=== PATIENT | female | born 1955 | race Two or more races ===

== ENCOUNTER 2017-02-06 11:16 | Emergency (ER) | payer MEDICAID ==
[~2017-02-06] VITALS: Ht 160 cm; Wt 82.0 kg
[2017-02-06] MEDS ORDERED: SODIUM CHLORIDE 0.9% 1,000 ML IV ONE (11:44)
[2017-02-06 12:04] LABS: BASOPHILS % 0.4 % (0.0-2.0); HEMATOCRIT. 34.4 % (36.0-48.0); HEMOGLOBIN. 11.3 g/dL (12.0-16.0); LYMPHOCYTES % 15.4 % (20.0-50.0); MEAN CORPUSCULAR HEMOGLOBIN 26.9 pg (28.0-32.0); MEAN CORPUSCULAR VOLUME 81.6 fL (81.0-99.0); MEAN PLATELET VOLUME 9.5 fl (7.4-10.4); MONOCYTES % 6.2 % (2.0-8.0); PLATELET 129 x1000/uL (130-400); RED BLOOD CELL COUNT 4.21 mill/uL (4.2-5.4); RED CELL DISTRIBUTION WIDTH 12.9 % (11.6-14.6); WHITE BLOOD COUNT 6.7 x1000/uL (4.5-11.0)
[2017-02-06 12:12] LABS: INR 1.1; PARTIAL THROMBOPLASTIN TIME 32.6 sec (24.0-34.0); PROTHROMBIN TIME 11.3 sec
[2017-02-06 12:13] LABS: AMMONIA 17 uMol/L (<32)
[2017-02-06 12:21] LABS: ACETAMINOPHEN < 2 ug/mL (10-30); ALANINE AMINOTRANSFERASE 19 IU/L (13-61); ALBUMIN 3.5 g/dL (3.4-5.0); ANION GAP 16; CARBON DIOXIDE 22 mEq/L (21-32); CHLORIDE 109 mEq/L (98-107); CREATINE KINASE 311 IU/L (26-192); ETHANOL BLOOD < 10 mg/dL; INDEX HEMOLYSI 1 (1-3); INDEX ICTERIC 1 (1-4); INDEX LIPEMIC 1 (1-3); NT PRO B-TYPE NATRIURETIC PEP 797 pg/mL (5-125); TROPONIN I < 0.02 ng/mL (0.00-0.04); UREA NITROGEN BLOOD 28 mg/dL (7-21); eGFR 35 mL/min (>60)
[2017-02-06 12:26] LABS: THYROID STIMULATING HORMONE 0.69 uIU/mL (0.36-3.74)
[2017-02-06 13:44] LABS: CLARITY URINE CLEAR (CLEAR); COLOR URINE YELLOW (YELLOW); GLUCOSE URINE NEGATIVE (NEGATIVE); KETONES URINE 2+ (NEGATIVE); LEUKOCYTE ESTERASE URINE NEGATIVE (NEGATIVE); NITRITE URINE NEGATIVE (NEGATIVE); OCCULT BLOOD URINE 2+ (NEGATIVE); PH URINE 5.5 (4.5-8.0); PROTEIN URINE 3+ (NEGATIVE); SPECIFIC GRAVITY URINE 1.021 (1.005-1.030)
[2017-02-06 14:00] LABS: WBC URINE 0-2 /hpf (0-2)
[2017-02-06 14:01] LABS: BACTERIA URINE TRACE; SQUAMOUS EPITHELIAL CELL URINE FEW /lpf (RARE/1+)
[2017-02-06 14:02] LABS: AMORPHOUS SEDIMENT URINE 1+ /lpf; COARSE GRANULAR CASTS URINE 0-5 /lpf; HYALINE CASTS URINE 0-5 /lpf
[2017-02-06 14:54] VITALS: BP 158/89
== END 2017-02-06 14:59 | disposition home or self-care (01) ==
LOC: ER 11:22
DX: S30.0XXA Contusion of lower back and pelvis, initial encounter (principal); E11.9 Type 2 diabetes mellitus without complications; I10 Essential (primary) hypertension; W07.XXXA Fall from chair, initial encounter; Y93.89 Activity, other specified; Y99.9 Unspecified external cause status; Y92.89 Other specified places as the place of occurrence of the external cause
CPT/HCPCS: 36415; 51702; 70450; 71010; 72125; 72131; 72170; 80053; 80307; 80329; 81001; 82140; 82550; 82962; 83605; 83880; 84443; 84484; 85025; 85610; 85730; 87040; 87086; 93005; 96360; 96361; 99285; G0482; J7030; Z7610; A4315